=== PATIENT | male | born 1985 | race Caucasian/White ===

== ENCOUNTER 2016-07-08 23:44 | Emergency (ER) | payer OTHER ==
[~2016-07-08] VITALS: Ht 182.9 cm; Wt 105.7 kg
[~2016-07-08 23:44] MED LIST: NAPROSYN500 MG PO; ZITHROMAX250 MG PO
[2016-07-09 00:39] LABS: EOSINOPHIL (%) 0.6 % (0-5); EOSINOPHIL COUNT 0.1 K/uL (0-0.3); HEMATOCRIT 41.7 % (38.0-50.0); IMMATURE GRANULOCYTE (%) 0.1 % (0.0-0.7); IMMATURE GRANULOCYTE COUNT 0.2 K/uL; MCH 31.4 PG (29.0-34.0); MCV 89.7 FL (86-99); MEAN PLAT.VOLUME 10.1 uM^3 (9.0-12.4); MONOCYTE (%) 4.1 % (3-12); MONOCYTE COUNT 0.7 K/uL (0-0.8); NEUTROPHIL (%) 82.3 % (45-76); NEUTROPHIL COUNT 13.1 K/uL (1.8-6.4); PLATELET COUNT 243 K/uL (156-360); RBC DIS.WIDTH-CV 12.4 % (11.8-14.6); RBC DIS.WIDTH-SD 40.1 % (39-53); RED BLOOD COUNT 4.65 M/uL (4.00-5.50)
[2016-07-09 00:41] LABS: CHLORIDE 110 mEq/L (99-109); POTASSIUM 3.7 mEq/L (3.7-5.4); SODIUM 142 mEq/L (136-147)
[2016-07-09 00:43] LABS: GLUCOSE 127 mg/dL (70-99)
[2016-07-09 00:44] LABS: ANION GAP 10 MEQ/L (2-14)
[2016-07-09 00:45] LABS: TOTAL BILIRUBIN 0.3 mg/dL (0.0-1.0)
[2016-07-09 00:46] LABS: SERUM ETHYL ALCOHOL 167 mg/dL
[2016-07-09 00:47] LABS: GFR ESTIMATE (CALCULATED) > 59 mL/min/
[2016-07-09 00:48] LABS: ALKALINE PHOSPHATASE 81 IU/L (3-129)
[2016-07-09 00:49] LABS: UREA NITROGEN (BUN) 7 mg/dL (9-23)
[2016-07-09 00:50] LABS: SALICYLATE < 5.0 MG/DL (15-30)
[2016-07-09 01:28] VITALS: BP 112/63
== END 2016-07-09 01:33 ==
LOC: EME 23:44
PROVIDERS: Emergency Medicine
DX: T40.1X1A Poisoning by heroin, accidental (unintentional), initial encounter (principal); I10 Essential (primary) hypertension; F20.9 Schizophrenia, unspecified; F10.99 Alcohol use, unspecified with unspecified alcohol-induced disorder; F17.200 Nicotine dependence, unspecified, uncomplicated; Y90.6 Blood alcohol level of 120-199 mg/100 ml
CPT/HCPCS: 71010; 80053; 85025; 99281; 99285; G0480; J2310

== ENCOUNTER 2017-03-02 05:07 | Emergency (ER) | payer OTHER ==
[~2017-03-02] VITALS: Ht 190.5 cm; Wt 118.9 kg
[2017-03-02] MEDS ORDERED: BACTRIM,SEPT1 TABLET PO (05:30)
[2017-03-02 05:41] VITALS: BP 138/89
== END 2017-03-02 05:48 | disposition home or self-care (01) ==
LOC: EME 05:07
DX: L02.416 Cutaneous abscess of left lower limb (principal); L03.116 Cellulitis of left lower limb; J45.909 Unspecified asthma, uncomplicated; I10 Essential (primary) hypertension; F20.9 Schizophrenia, unspecified; F17.200 Nicotine dependence, unspecified, uncomplicated
CPT/HCPCS: 99281; 99283

== ENCOUNTER 2017-03-04 04:37 | Emergency (ER) | payer OTHER ==
[~2017-03-04] VITALS: Ht 190.5 cm; Wt 118.8 kg
[~2017-03-04 04:37] MED LIST changes: +BACTRIM,SEPT1 TABLET PO
[2017-03-04 06:05] LABS: HEMATOCRIT 44.3 % (38.0-50.0); MCHC 33.6 G/DL (30.0-36.0); MCV 92.3 FL (86-99); MEAN PLAT.VOLUME 10.1 uM^3 (9.0-12.4); PLATELET COUNT 281 K/uL (156-360); RBC DIS.WIDTH-CV 12.2 % (11.8-14.6); RBC DIS.WIDTH-SD 41.7 % (39-53); WHITE BLOOD COUNT 15.4 K/uL (4.1-10.2)
[2017-03-04] MEDS ORDERED: NORCO 5/3251 TABLET PO (06:05)
[2017-03-04 06:08] VITALS: BP 115/36
[2017-03-04 06:16] LABS: CHLORIDE 107 mEq/L (99-109); POTASSIUM 4.2 mEq/L (3.7-5.4); SODIUM 141 mEq/L (136-147)
[2017-03-04 06:17] LABS: GLUCOSE 84 mg/dL (70-99)
[2017-03-04 06:19] LABS: ANION GAP 10 MEQ/L (2-14)
[2017-03-04 06:21] LABS: GFR ESTIMATE (CALCULATED) > 59 mL/min/
[2017-03-04 06:22] LABS: UREA NITROGEN (BUN) 10 mg/dL (9-23)
== END 2017-03-04 06:08 | disposition home or self-care (01) ==
LOC: EME 04:37
PROVIDERS: Emergency Medicine
DX: L03.116 Cellulitis of left lower limb (principal); Z88.0 Allergy status to penicillin; F17.200 Nicotine dependence, unspecified, uncomplicated
CPT/HCPCS: 80048; 85027; 87040; 99281; 99283; J0696

== ENCOUNTER 2017-04-13 15:55 | Emergency (ER) | payer OTHER ==
[~2017-04-13] VITALS: Ht 193 cm; Wt 114.0 kg
[~2017-04-13 15:55] MED LIST changes: +NORCO 5/3251 TABLET PO
[2017-04-13 17:53] LABS: ADD MIUA? YES; BILIRUBIN SMALL; BLOOD NEGATIVE; COLOR AMBER ((YELLOW)); GLUCOSE (STRIP) NEGATIVE; KETONES 5; LEUKOCYTES TRACE; NITRITE NEGATIVE; PROTEIN (STRIP) 100; SPECIFIC GRAVITY 1.031 (1.000-1.030)
[2017-04-13 18:02] LABS: BACTERIA RARE /HPF; EPITHELIAL CELLS NONE SEEN /HPF; MUCUS 3+ /LPF; UCUL ADDED? YES
[2017-04-13 18:23] LABS: HEMATOCRIT 48.7 % (38.0-50.0); MCH 31.4 PG (29.0-34.0); MCHC 33.7 G/DL (30.0-36.0); MCV 93.3 FL (86-99); MEAN PLAT.VOLUME 10.7 uM^3 (9.0-12.4); PLATELET COUNT 214 K/uL (156-360); RBC DIS.WIDTH-CV 12.4 % (11.8-14.6); RBC DIS.WIDTH-SD 42.6 % (39-53); RED BLOOD COUNT 5.22 M/uL (4.00-5.50); WHITE BLOOD COUNT 6.2 K/uL (4.1-10.2)
[2017-04-13 18:28] LABS: CHLORIDE 105 mEq/L (99-109); POTASSIUM 3.9 mEq/L (3.7-5.4); SODIUM 141 mEq/L (136-147)
[2017-04-13 18:30] LABS: GLUCOSE 93 mg/dL (70-99)
[2017-04-13 18:31] LABS: ANION GAP 10 MEQ/L (2-14)
[2017-04-13 18:32] LABS: TOTAL BILIRUBIN 0.7 mg/dL (0.0-1.0)
[2017-04-13 18:34] LABS: ALKALINE PHOSPHATASE 84 IU/L (3-129); GFR ESTIMATE (CALCULATED) > 59 mL/min/
[2017-04-13 18:35] LABS: UREA NITROGEN (BUN) 11 mg/dL (9-23)
[2017-04-13 18:37] LABS: LIPASE 38 U/L (1.0-51.0)
[2017-04-13] MEDS ORDERED: PYRIDIUM200 MG PO (19:35)
[2017-04-13] MEDS ORDERED: BACTRIM,SEPT1 TABLET PO (19:35)
[2017-04-13 19:41] VITALS: BP 134/62
[2017-04-14 12:25] LABS: CHLAMYDIA TRACHOMATIS NEGATIVE; NEISSERIA GONORRHOEAE NEGATIVE
== END 2017-04-13 19:42 | disposition home or self-care (01) ==
LOC: EME 15:55
PROVIDERS: Physician Assistant
DX: N39.0 Urinary tract infection, site not specified (principal); I10 Essential (primary) hypertension; J45.909 Unspecified asthma, uncomplicated; F31.9 Bipolar disorder, unspecified; F20.9 Schizophrenia, unspecified; F91.3 Oppositional defiant disorder; F42.9 Obsessive-compulsive disorder, unspecified; F90.9 Attention-deficit hyperactivity disorder, unspecified type; F43.10 Post-traumatic stress disorder, unspecified; F60.3 Borderline personality disorder; F17.200 Nicotine dependence, unspecified, uncomplicated; Z88.0 Allergy status to penicillin
CPT/HCPCS: 74176; 80053; 81003; 83690; 85027; 87086; 87491; 87591; 99281; 99283

== ENCOUNTER 2017-04-24 13:18 | Emergency (ER) | payer OTHER ==
[~2017-04-24] VITALS: Ht 190.5 cm; Wt 111.7 kg
[~2017-04-24 13:18] MED LIST changes: +PYRIDIUM200 MG PO
[2017-04-24] MEDS ORDERED: NEURONTIN100 MG PO (14:05)
[2017-04-24] MEDS ORDERED: NAPROSYN500 MG PO (14:05)
[2017-04-24 14:32] VITALS: BP 111/77
== END 2017-04-24 14:40 | disposition home or self-care (01) ==
LOC: EME 13:18
DX: R20.2 Paresthesia of skin (principal); M79.641 Pain in right hand; I10 Essential (primary) hypertension; J45.909 Unspecified asthma, uncomplicated; F17.200 Nicotine dependence, unspecified, uncomplicated; Z88.0 Allergy status to penicillin; Z88.8 Allergy status to other drugs, medicaments and biological substances
CPT/HCPCS: 99281; 99283; J1885

== ENCOUNTER 2017-05-15 11:34 | Emergency (ER) | payer OTHER ==
[~2017-05-15] VITALS: Ht 190.5 cm; Wt 110.4 kg
[~2017-05-15 11:34] MED LIST changes: +NEURONTIN100 MG PO
[2017-05-15] MEDS ORDERED: ZITHROMAX500 MG PO (12:32)
[2017-05-15] MEDS ORDERED: NAPROSYN500 MG PO (12:32)
[2017-05-15 12:46] VITALS: BP 122/72
== END 2017-05-15 12:46 | disposition home or self-care (01) ==
LOC: EME 11:34
DX: J02.0 Streptococcal pharyngitis (principal); Z88.0 Allergy status to penicillin; F17.200 Nicotine dependence, unspecified, uncomplicated
CPT/HCPCS: 87651 90; 99281; 99284

== ENCOUNTER 2017-09-10 08:29 | Emergency (ER) | payer OTHER ==
[~2017-09-10] VITALS: Ht 190.5 cm; Wt 108.3 kg
[~2017-09-10 08:29] MED LIST changes: +ZITHROMAX500 MG PO
[2017-09-10] MEDS ORDERED: CLINDAMYCIN HC150 MG PO (12:09)
[2017-09-10 12:30] VITALS: BP 139/64
== END 2017-09-10 12:36 | disposition home or self-care (01) ==
LOC: EME 08:29
DX: S20.211A Contusion of right front wall of thorax, initial encounter (principal); M20.012 Mallet finger of left finger(s); Y93.83 Activity, rough housing and horseplay; F17.200 Nicotine dependence, unspecified, uncomplicated; Z88.6 Allergy status to analgesic agent; Z88.0 Allergy status to penicillin
CPT/HCPCS: 71046; 73140; 99281; 99284

== ENCOUNTER → 2017-10-22 14:09 | Emergency (ER) | payer OTHER ==
[~2017-10-22] VITALS: Ht 190.5 cm; Wt 102.9 kg
[~2017-10-22 14:09] MED LIST changes: +CLINDAMYCIN HC150 MG PO; +NAPROXEN500 MG PO
[2017-10-22 14:12] VITALS: BP 119/90
== END | disposition left against medical advice (07) ==
LOC: EME 14:09
DX: M25.532 Pain in left wrist (principal); Y08.02XA Assault by strike by baseball bat, initial encounter; Z53.21 Procedure and treatment not carried out due to patient leaving prior to being seen by health care provider
CPT/HCPCS: 73110

== ENCOUNTER 2017-10-26 15:12 | Emergency (ER) | payer OTHER ==
[~2017-10-26] VITALS: Ht 190.5 cm; Wt 105.2 kg
[~2017-10-26 15:12] MED LIST changes: -NAPROXEN500 MG PO
[2017-10-26 15:27] VITALS: BP 161/102
[2017-10-26] MEDS ORDERED: NAPROXEN500 MG PO (15:31)
== END 2017-10-26 15:43 | disposition home or self-care (01) ==
LOC: EME 15:12
DX: S63.502A Unspecified sprain of left wrist, initial encounter (principal); S60.212A Contusion of left wrist, initial encounter; W21.11XA Struck by baseball bat, initial encounter; F17.200 Nicotine dependence, unspecified, uncomplicated; Z88.0 Allergy status to penicillin; Z88.6 Allergy status to analgesic agent
CPT/HCPCS: 99281; 99283